=== PATIENT | female | born 1930 | race Caucasian/White ===

== ENCOUNTER 2018-02-02 07:55 | Inpatient (IN) | payer BC, MEDICARE ==
[2018-02-02 08:54] LABS: Hematocrit 34.6 % (37.0-47.0); Hemoglobin 11.2 gm/dL (12.5-16.0); Mean Cell Volume 96.6 fl (78-100); Mean Corpuscular Hemoglobin 31.3 pg (27-31); Mean Corpuscular Hgb Conc 32.4 g/dl (32-36); Mean Platelet Volume 11.1 fl (8-12.5); Neutrophil # 12.2 K/mm3 (1.3-6.0); Neutrophil % 80.6 % (42-75.0); Platelet Count 236 K/mm3 (150-450); Red Blood Count 3.58 M/mm3 (4.2-5.4); Red Cell Distribution Width 12.2 % (11.5-14.0); White Blood Count 15.1 K/mm3 (4.0-10.5)
[2018-02-02 09:06] LABS: Albumin * 3.1 gm/dl (3.4-5.0); Anion Gap 10.7 mmol/L (6.8-13.8); BUN/Creatinine Ratio 20.7 (9.0-21.6); Bilirubin, Total 0.7 mg/dL (0.0-1.1); Ca. Corrected For Albumin 9.2 mg/dL (8.4-10.2); Calcium * 8.8 mg/dL (7.9-10.9); Carbon Dioxide 30.7 mmol/L (24-32.6); Potassium 3.4 mmol/L (3.4-4.6); Total Protein 7.7 gm/dL (6.2-8.2)
[2018-02-02 10:21] LABS: Urine Bilirubin Negative (NEGATIVE); Urine Blood 50 /ul (NEGATIVE); Urine Ketone Negative (NEGATIVE); Urine Nitrite Negative (NEGATIVE); Urine Protein 15 mg/dL (NEGATIVE); Urine Urobilinogen Normal (NORMAL); Urine pH 7.5 pH (5.0-7.0)
[2018-02-02] MEDS ORDERED: HYDROmorphone HCL 1 MG/ML DISP.SYRIN IV ONE ×2 (10:25→11:45)
[2018-02-02] MEDS ORDERED: NORMAL SALINE 1,000 ML IV ONE (10:29)
[2018-02-02 10:31] LABS: Urine Appearance Cloudy (CLEAR); Urine Color Yellow
[2018-02-02 10:32] LABS: Urine Bacteria 2+; Urine RBC >50 /hpf (0-5); Urine WBC >50 /hpf (0-5)
--- NOTE | 2018-02-02 10:32 | ERNOTE ---
Lower Extremity HPI - Narrative Date of Service: 02/02/18 - General Lower Extremities Pain: leg: left, knee: left Time Seen by Provider: 02/02/18 08:06 Source: patient Exam Limitations: no limitations - Immun/Allergies/Home Medications Immunizations: IMMUNIZATION HX Immunizations Up to Date Yes History of Influenza Vaccine Yes Hx Pneumococcal Vaccination Yes Allergies/Adverse Reactions: Allergies Allergy/AdvReac Type Severity Reaction Status Date / Time No Known Allergies Allergy Verified 02/02/18 08:03 Home Medications: HOME MEDICATIONS Ferrous Sulfate 325 mg PO DAILY 10/28/13 [Last Taken 10/28/13] Gabapentin [Neurontin] 300 mg PO TID 10/28/13 [Last Taken 10/28/13] Mirtazapine [Remeron] 30 mg PO HS 10/28/13 [Last Taken 10/27/13] Multivitamin [Multi-Vitamin Daily] 1 each PO DAILY 10/28/13 [Last Taken 10/28/13] amLODIPine BESYLATE [Norvasc] 10 mg PO DAILY 10/28/13 [Last Taken 10/28/13] Acetaminophen [Tylenol] 650 mg PO Q4H PRN 10/29/13 [Last Taken Unknown] Collagenase Clostridium Hist. [Santyl] 1 applic TP DAILY 10/29/13 [Last Taken Unknown] Loratadine [Claritin] 10 mg PO DAILY PRN 10/29/13 [Last Taken Unknown] fentaNYL [Duragesic] 50 mcg TD Q72H 10/29/13 [Last Taken Unknown] Cholecalciferol (Vitamin D3) [Vitamin D-3] 2,000 unit PO DAILY #0 tablet 10/30/13 [Last Taken Unknown] Docusate Sodium [Colace] 200 mg PO HS #0 capsule 10/30/13 [Last Taken Unknown] HYDROmorphone HCL [Dilaudid] 2 mg PO Q6H PRN #0 tablet 10/30/13 [Last Taken Unknown] Lisinopril [Zestril] 10 mg PO HS #0 10/30/13 [Last Taken 10/28/13] Sertraline HCl [Zoloft] 100 mg PO DAILY #0 tablet 10/30/13 [Last Taken Unknown] ALPRAZolam [Xanax] 0.5 mg PO HS 02/01/18 [Last Taken Unknown] Acetaminophen [Tylenol] 650 mg PO DAILY 02/01/18 [Last Taken Unknown] Alprazolam [Xanax] 0.25 mg PO DAILY 02/01/18 [Last Taken Unknown] Loperamide HCl [Imodium] 2 mg PO TID PRN 02/01/18 [Last Taken Unknown] Loperamide HCl [Imodium] 4 mg PO DAILY PRN 02/01/18 [Last Taken Unknown] Metoprolol Succinate 25 mg PO DAILY 02/01/18 [Last Taken Unknown] Morphine Sulfate [Ms Contin] 15 mg PO BID 02/01/18 [Last Taken Unknown] Pramipexole Di-HCl [Pramipexole Dihydrochloride] 0.5 mg PO HS 02/01/18 [Last Taken Unknown] Simethicone [Gas Relief] 80 mg PO TID PRN 02/01/18 [Last Taken Unknown] guaiFENesin/DEXTROMETHORPHAN [Tussin Dm Syrup] 10 ml PO Q4H PRN 02/01/18 [Last Taken Unknown] rOPINIRole HCL [Requip] 2 mg PO HS 02/01/18 [Last Taken Unknown] - History of Present Illness Narrative: Patient presents to the ED via EMS for leg pain. She fell last night and had left knee/leg pain but this am it was noted to be swollen and she could not bear weight. Her left knee and leg were noted to be red and swollen. Once again this happened at around 930 pm last night. Had a fall. Denies other injuries. No head injury, no acute neck pain from the fall. no acute chest or abdominal pain. Pain severe with movement and better with rest. Occurred: other - last night Location of Incident: home Method of Injury: Reports: fell Reason for Fall: Reports: other - no syncope Loss of Consciousness: Reports: no loss of consciousness Modifying Factors - (Improves): Reports: rest Modifying Factors - (Worsens): Reports: movement Associated Symptoms: Reports: unable to bear weight Other Injuries: Reports: none Subsequent Symptoms: Denies: motor loss Prior Treament: Reports: recently seen Review of Systems - Review of Systems Constitutional: Absent: fever EYE: Present: no symptoms reported Respiratory: Absent: shortness of breath Cardiology: Absent: chest pain Gastrointestinal/Abdominal: Absent: abdominal pain Musculoskeletal: Present: See HPI Neurological: Present: other - weakness d/t pain. no clear acute weakness otherwise All Other Systems: All systems neg except as marked Medical History (Last Reviewed 02/02/18 @ 10:48 by Chuck Ovalles MD) Anxiety Hip fracture, left Hypertension Ovarian cancer Restless leg syndrome Social History: Preferred Language Maltese Smoking Status Never smoker Alcohol Use none Drug Use none No Social History Section defined Physical Exam - Physical Exam General Appearance: Present: alert, no apparent distress Head Exam: Present: normal inspection, no evidence of injury Eye Exam: Normal inspection: bilateral, PERRL: bilateral Ears, Nose, Throat: Present: normal ENT inspection Neck: Present: normal inspection, other - no vertebral posterior c-spine tenderness Respiratory: Present: no respiratory distress, normal breath sounds Cardiovascular/Chest: Present: regular rate, rhythm, normal peripheral pulses, other - DP pulse noted Gastrointestinal/Abdominal: Present: normal bowel sounds, nontender, soft Back Exam: Absent: vertebral tenderness Extremity Exam: Present: other - tenderness left knee and tib fib. Red and swollen. The compartments are not cliniclly hard and I do not feel this represents a clinical compartment synrome. DP pulse noted. Neurological Exam: Present: alert, no motor/sensory deficits, other - pain limits exam Skin Exam: Present: normal color, warm/dry, other - no open fracture ED Progress - Results and Orders Patient's Lab Results:: I have reviewed the patient's lab results. - Vital Signs Patient's Vital Signs:: I have reviewed the patient's vital signs. Vital Signs: Vital Signs 02/02/18 07:57 02/02/18 08:06 02/02/18 08:32 Temperature 36.6 C Pulse Rate 84 80 79 Respiratory Rate 15 13 17 Blood Pressure 152/69 H 162/71 H 162/71 H O2 Sat by Pulse Oximetry 95 94 96 02/02/18 09:00 02/02/18 09:23 02/02/18 09:40 Temperature Pulse Rate 77 76 87 Respiratory Rate 18 18 12 Blood Pressure 164/68 H 166/70 H 166/72 H O2 Sat by Pulse Oximetry 96 98 97 02/02/18 09:59 Temperature Pulse Rate 85 Respiratory Rate 16 Blood Pressure 154/65 H O2 Sat by Pulse Oximetry 98 - EKG EKG: NSR EKG read: Interp. by me EKG Comments: NSR rate 78. non-specific changes, no STEMI - X-Ray X-Ray #1 X-Ray: chest Interpretation: Interp. by me X-ray Comments: I reviewed official radiology report X-Ray #2 X-Ray: femur Interpretation: Interp. by me X-ray Comments: I reviewed official radiology report X-Ray #3 X-Ray: tibula/fibula Interpretation: Interp. by me X-ray Comments: I reviewed official radiology report X-Ray #4 X-Ray: knee Interpretation: Interp. by me X-ray Comments: i reviewed official radiology report - CT/Ultrasound CT/Ultrasound Narrative: I reviewed CT report - Progress/Reassessment Chief Complaint: Lower Extremity Pain/ Injury Progress Note-Subjective: 02/02/18 10:51 D/W Dr Woods who recommends CT. He called back and asked Medicine to admit for surgery today. D/W Dr Greco who will admit. Dr Woods will see the patient. I spoke with the patient and she understands the situation at hand. Agreeable to admission and ortho consult. Departure Clinical Impression: Fall, Fracture, tibia and fibula, proximal - Departure Disposition: Still a patient Condition: Stable
--- NOTE | 2018-02-02 11:59 | HP ---
Chief Complaint - Chief Complaint Date of Service: 02/02/18 Time of Service: 11:57 Chief Complaint: left lower leg fracture History of Present Illness: Patient is a resident of [facility], and sustained two falls yesterday. She was brought to the ED yesterday after the first fall, and again today. Yesterday's xrays were negative, but today's show she sustained nondisplaced fractures of her left upper tibia and fibula. Dr. Woods has been consulted, and she will be undergoing surgical fixation later today. Yesterday's ED note states her left lower leg has turned in since her hip surgery on that side, and she feels like that may have contributed to her fall. She reports a PMHx of chronic lower leg and back pain, previous ovarian cancer with radiation, bilateral hip fractures, partial colectomy due to bowel obstruction, chronic diarrhea, HTN, RLS,. Denies heart or lung problems, denies diabetes. She has been a resident of [place] since her hip fractures approximately 4-5 years ago. Review of her medication list shows an antidepressant and anxiolytic. Medical History (Last Reviewed 02/02/18 @ 10:48 by Chuck Ovalles MD) Anxiety Hip fracture, left Hypertension Ovarian cancer Restless leg syndrome Social History: Preferred Language Icelandic Smoking Status Never smoker Alcohol Use none Drug Use none No Social History Section defined Review Of Systems (GEN) - Review of Systems Generalized/Overall Review: Absent: Fever Respiratory: Absent: Cough, Shortness of Breath Cardiac: Absent: Edema Abdominal: Present: Diarrhea - chronic since surgery. Absent: Nausea Genitourinary: Absent: Dysuria Musculoskeletal: Present: Back Pain, Other - acute left lower leg pain. Walks with walker at baseline Neurological: Present: Anxiety Immunizations: IMMUNIZATION HX Immunizations Up to Date Yes History of Influenza Vaccine Yes Hx Pneumococcal Vaccination Yes Allergies/Adverse Reactions: Allergies Allergy/AdvReac Type Severity Reaction Status Date / Time No Known Allergies Allergy Verified 02/02/18 08:03 Home Medications: HOME MEDICATIONS Ferrous Sulfate 325 mg PO DAILY 10/28/13 [Last Taken 10/28/13] Gabapentin [Neurontin] 300 mg PO TID 10/28/13 [Last Taken 10/28/13] Mirtazapine [Remeron] 30 mg PO HS 10/28/13 [Last Taken 10/27/13] Multivitamin [Multi-Vitamin Daily] 1 each PO DAILY 10/28/13 [Last Taken 10/02 11/14] amLODIPine BESYLATE [Norvasc] 10 mg PO DAILY 10/28/13 [Last Taken 10/28/13] Acetaminophen [Tylenol] 650 mg PO Q4H PRN 10/29/13 [Last Taken Unknown] Collagenase Clostridium Hist. [Santyl] 1 applic TP DAILY 10/29/13 [Last Taken Unknown] Loratadine [Claritin] 10 mg PO DAILY PRN 10/29/13 [Last Taken Unknown] fentaNYL [Duragesic] 50 mcg TD Q72H 10/29/13 [Last Taken Unknown] Cholecalciferol (Vitamin D3) [Vitamin D-3] 2,000 unit PO DAILY #0 tablet 10/30/13 [Last Taken Unknown] Docusate Sodium [Colace] 200 mg PO HS #0 capsule 10/30/13 [Last Taken Unknown] HYDROmorphone HCL [Dilaudid] 2 mg PO Q6H PRN #0 tablet 10/30/13 [Last Taken Unknown] Lisinopril [Zestril] 10 mg PO HS #0 10/30/13 [Last Taken 10/28/13] Sertraline HCl [Zoloft] 100 mg PO DAILY #0 tablet 10/30/13 [Last Taken Unknown] ALPRAZolam [Xanax] 0.5 mg PO HS 02/01/18 [Last Taken Unknown] Acetaminophen [Tylenol] 650 mg PO DAILY 02/01/18 [Last Taken Unknown] Alprazolam [Xanax] 0.25 mg PO DAILY 02/01/18 [Last Taken Unknown] Loperamide HCl [Imodium] 2 mg PO TID PRN 02/01/18 [Last Taken Unknown] Loperamide HCl [Imodium] 4 mg PO DAILY PRN 02/01/18 [Last Taken Unknown] Metoprolol Succinate 25 mg PO DAILY 02/01/18 [Last Taken Unknown] Morphine Sulfate [Ms Contin] 15 mg PO BID 02/01/18 [Last Taken Unknown] Pramipexole Di-HCl [Pramipexole Dihydrochloride] 0.5 mg PO HS 02/01/18 [Last Taken Unknown] Simethicone [Gas Relief] 80 mg PO TID PRN 02/01/18 [Last Taken Unknown] guaiFENesin/DEXTROMETHORPHAN [Tussin Dm Syrup] 10 ml PO Q4H PRN 02/01/18 [Last Taken Unknown] rOPINIRole HCL [Requip] 2 mg PO HS 02/01/18 [Last Taken Unknown] Exam - Exam Vital Signs: Vital Signs - Last Taken Temp 36.6 C 02/02/18 07:57 Pulse 74 02/02/18 10:54 Resp 16 02/02/18 10:54 BP 152/55 H 02/02/18 10:54 Pulse Ox 98 02/02/18 10:54 Constitutional: Present: Alert, Oriented x3, Cooperative, No distress, Elderly Respiratory: Present: normal breath sounds, no respiratory distress, No wheezing Cardiovascular/Chest: Present: regular rate, rhythm Abdomen: Present: Normal bowel sounds, soft, nontender, nondistended Extremity: Present: other - ecchymosis of left anterior lower leg, 1+ swelling of left lower leg Neurologic: Present: depressed affect - states "just let me " Eye contact: Present: cooperative, good eye contact Diagnostic Studies: Abnormal Lab Results 02/02/18 02/02/18 02/02/18 Range/Units 08:51 08:51 09:59 WBC 15.1 H (4.0-10.5) K/mm3 RBC 3.58 L (4.2-5.4) M/mm3 Hgb 11.2 L (12.5-16.0) gm/dL Hct 34.6 L (37.0-47.0) % MCH 31.3 H (27-31) pg Immature Gran % (Auto) 0.50 H (0.001-0.429) % Immature Gran # (Auto) 0.08 H (0.000-0.0310) K/mm3 Neutrophils % 80.6 H (42-75.0) % Lymphocytes % 9.7 L (20-51) % Neutrophils # 12.2 H (1.3-6.0) K/mm3 Lymphocytes # 1.46 L (1.5-3.5) k/mm3 Monocytes # 1.3 H (0.0-1.0) k/mm3 Albumin 3.1 L (3.4-5.0) gm/dl Urine Protein 15 H (NEGATIVE) mg/dL Urine Blood 50 H (NEGATIVE) /ul Ur Leukocyte Esterase 500 H (NEGATIVE) /ul Urine RBC >50 H (0-5) /hpf Urine WBC >50 H (0-5) /hpf Urine Bacteria 2+ H (NONE) Laboratory Results WBC 15.1 K/mm3 (4.0-10.5) H 02/02/18 08:51 RBC 3.58 M/mm3 (4.2-5.4) L 02/02/18 08:51 Hgb 11.2 gm/dL (12.5-16.0) L 02/02/18 08:51 Hct 34.6 % (37.0-47.0) L 02/02/18 08:51 MCV 96.6 fl (78-100) 02/02/18 08:51 MCH 31.3 pg (27-31) H 02/02/18 08:51 MCHC 32.4 g/dl (32-36) 02/02/18 08:51 RDW 12.2 % (11.5-14.0) 02/02/18 08:51 Plt Count 236 K/mm3 (150-450) 02/02/18 08:51 MPV 11.1 fl (8-12.5) 02/02/18 08:51 Immature Gran % (Auto) 0.50 % (0.001-0.429) H 02/02/18 08:51 Immature Gran # (Auto) 0.08 K/mm3 (0.000-0.0310) H 02/02/18 08:51 Neutrophils % 80.6 % (42-75.0) H 02/02/18 08:51 Lymphocytes % 9.7 % (20-51) L 02/02/18 08:51 Monocytes % 8.8 % (0.0-9) 02/02/18 08:51 Eosinophils % 0.2 % (0.0-3.0) 02/02/18 08:51 Basophils % 0.2 % (0.0-1.0) 02/02/18 08:51 Nucleated RBC % 0.0 k/mm3 (0-1) 02/02/18 08:51 Neutrophils # 12.2 K/mm3 (1.3-6.0) H 02/02/18 08:51 Lymphocytes # 1.46 k/mm3 (1.5-3.5) L 02/02/18 08:51 Monocytes # 1.3 k/mm3 (0.0-1.0) H 02/02/18 08:51 Eosinophils # 0.0 k/mm3 (0.0-0.7) 02/02/18 08:51 Absolute Basophils 0.0 k/mm3 (0.0-0.1) 02/02/18 08:51 Sodium 141 mmol/L (132-142) 02/02/18 08:51 Plasma Sodium 141 mmol/L (130-142) 02/02/18 08:51 Potassium 3.4 mmol/L (3.4-4.6) 02/02/18 08:51 Chloride 103 mmol/L (97-106) 02/02/18 08:51 Carbon Dioxide 30.7 mmol/L (24-32.6) 02/02/18 08:51 Anion Gap 10.7 mmol/L (6.8-13.8) 02/02/18 08:51 BUN 17 mg/dL (3-23) 02/02/18 08:51 Creatinine 0.82 mg/dL (0.4-1.4) 02/02/18 08:51 Est GFR (Non-Af Amer) 70 mL/min (60-130) D 02/02/18 08:51 BUN/Creatinine Ratio 20.7 (9.0-21.6) 02/02/18 08:51 Random Glucose 99 mg/dL (70-110) 02/02/18 08:51 Calcium 8.8 mg/dL (7.9-10.9) 02/02/18 08:51 Calcium Adj for Albumin 9.2 mg/dL (8.4-10.2) 02/02/18 08:51 Total Bilirubin 0.7 mg/dL (0.0-1.1) 02/02/18 08:51 AST 17 U/L (0-48) 02/02/18 08:51 ALT 20 U/L (19-67) 02/02/18 08:51 Alkaline Phosphatase 117 U/L (50-170) 02/02/18 08:51 Total Protein 7.7 gm/dL (6.2-8.2) 02/02/18 08:51 Albumin 3.1 gm/dl (3.4-5.0) L 02/02/18 08:51 Urine Color Yellow 02/02/18 09:59 Urine Appearance Cloudy (CLEAR) 02/02/18 09:59 Urine pH 7.5 pH (5.0-7.0) 02/02/18 09:59 Ur Specific [place] 1.010 SP.GR. (1.005-1.010) 02/02/18 09:59 Urine Protein 15 mg/dL (NEGATIVE) H 02/02/18 09:59 Urine Glucose (UA) Negative mg/dL (NEGATIVE) 02/02/18 09:59 Urine Ketones Negative mg/dL (NEGATIVE) 02/02/18 09:59 Urine Blood 50 /ul (NEGATIVE) H 02/02/18 09:59 Urine Nitrate Negative (NEGATIVE) 02/02/18 09:59 Urine Bilirubin Negative mg/dl (NEGATIVE) 02/02/18 09:59 Prot Sulfosalicylic Acd QNS 02/02/18 09:59 Urine Urobilinogen Normal EU/dl (NORMAL) 02/02/18 09:59 Ur Leukocyte Esterase 500 /ul (NEGATIVE) H 02/02/18 09:59 Urine RBC >50 /hpf (0-5) H 02/02/18 09:59 Urine WBC >50 /hpf (0-5) H 02/02/18 09:59 Ur Epithelial Cells Trace /hpf (0-5) 02/02/18 09:59 Urine Bacteria 2+ (NONE) H 02/02/18 09:59 Urine Culture Comments Culture to follow 02/02/18 09:59 Assessment/Plan - Assessment/Plan (1) Fracture, tibia and fibula, proximal Assessment: Patient will be having surgical repair of her fracture this afternoon. Low surgical risk - not a high risk surgery, no hx of ischemic heart disease, no CHF, no previous TIA/stroke, no diabetes, creatinine of 0.82. She takes 15 mg morphine bid at baseline. Could potentially increase frequency for post op pain control. PT after surgery, but may need to go to a different facility for rehab after discharge. Problem: Acute Qualifiers: Encounter type: initial encounter Fracture type: closed Laterality: left Qualified Code(s): S82.102A - Unspecified fracture of upper end of left tibia, initial encounter for closed fracture; S82.832A - Other fracture of upper and lower end of left fibula, initial encounter for closed fracture (2) Hypertension Assessment: Med list includes amlodipine and metoprolol succinate. She is not sure what meds she takes, so unsure if the metoprolol is for BP. Her BP is slightly elevated in 150's/50's. No med adjustments needed currently, but will continue to monitor. Problem: Acute (3) Depression with anxiety Assessment: She appears acutely depressed today, which is to be expected after an injury. Will continue sertraline, mirtazipine, and 0.5 mg alprazolam qhs + 0.25 mg alprazolam in am. Will reassess after surgery, and may call for a power and recovery shift engineer if needed. Problem: Acute (4) Restless leg syndrome Assessment: Pramipexole and ropinirole are both listed on her med list. The combination of both meds can lead to hypotension and increased risk of [employer] depression. Will only use pramipexole going forward. Problem: Acute (5) Chronic diarrhea Assessment: She is prescribed loperamide. Will hold, as increased her pain meds puts her at risk for constipation. Problem: Acute
--- NOTE | 2018-02-02 13:25 | ANES ---
Anesthesia Pre Procedure Eval Vitals/Labs: Last Vital Signs Temp 37.6 C 02/02/18 10:34 Pulse 74 02/02/18 10:54 Resp 16 02/02/18 10:54 BP 152/55 H 02/02/18 10:54 Pulse Ox 98 02/02/18 10:54 HOME MEDICATIONS Ferrous Sulfate 325 mg PO DAILY 10/28/13 [Last Taken 10/28/13] Gabapentin [Neurontin] 300 mg PO TID 10/28/13 [Last Taken 10/28/13] Mirtazapine [Remeron] 30 mg PO HS 10/28/13 [Last Taken 10/27/13] Multivitamin [Multi-Vitamin Daily] 1 each PO DAILY 10/28/13 [Last Taken 10/28/13] amLODIPine BESYLATE [Norvasc] 10 mg PO DAILY 10/28/13 [Last Taken 10/28/13] Acetaminophen [Tylenol] 650 mg PO Q4H PRN 10/29/13 [Last Taken Unknown] Collagenase Clostridium Hist. [Santyl] 1 applic TP DAILY 10/29/13 [Last Taken Unknown] Loratadine [Claritin] 10 mg PO DAILY PRN 10/29/13 [Last Taken Unknown] fentaNYL [Duragesic] 50 mcg TD Q72H 10/29/13 [Last Taken Unknown] Cholecalciferol (Vitamin D3) [Vitamin D-3] 2,000 unit PO DAILY #0 tablet 10/30/13 [Last Taken Unknown] Docusate Sodium [Colace] 200 mg PO HS #0 capsule 10/30/13 [Last Taken Unknown] HYDROmorphone HCL [Dilaudid] 2 mg PO Q6H PRN #0 tablet 10/30/13 [Last Taken Unknown] Lisinopril [Zestril] 10 mg PO HS #0 10/30/13 [Last Taken 10/28/13] Sertraline HCl [Zoloft] 100 mg PO DAILY #0 tablet 10/30/13 [Last Taken Unknown] ALPRAZolam [Xanax] 0.5 mg PO HS 02/01/18 [Last Taken Unknown] Acetaminophen [Tylenol] 650 mg PO DAILY 02/01/18 [Last Taken Unknown] Alprazolam [Xanax] 0.25 mg PO DAILY 02/01/18 [Last Taken Unknown] Loperamide HCl [Imodium] 2 mg PO TID PRN 02/01/18 [Last Taken Unknown] Loperamide HCl [Imodium] 4 mg PO DAILY PRN 02/01/18 [Last Taken Unknown] Metoprolol Succinate 25 mg PO DAILY 02/01/18 [Last Taken Unknown] Morphine Sulfate [Ms Contin] 15 mg PO BID 02/01/18 [Last Taken Unknown] Pramipexole Di-HCl [Pramipexole Dihydrochloride] 0.5 mg PO HS 02/01/18 [Last Taken Unknown] Simethicone [Gas Relief] 80 mg PO TID PRN 02/01/18 [Last Taken Unknown] guaiFENesin/DEXTROMETHORPHAN [Tussin Dm Syrup] 10 ml PO Q4H PRN 02/01/18 [Last Taken Unknown] rOPINIRole HCL [Requip] 2 mg PO HS 02/01/18 [Last Taken Unknown] Allergies/Adverse Reactions: Allergies Allergy/AdvReac Type Severity Reaction Status Date / Time No Known Allergies Allergy Verified 02/02/18 08:03 - Planned Procedure Planned Procedure: leg fractures/fall Medication List Reviewed:: Yes Allergies Verified: Yes Medical History (Last Reviewed 02/02/18 @ 13:24 by Chuck Norman CRNA) Cholecystectomy planned (Acute) Hip fracture, left (Acute) Ovarian cancer (Acute) Anxiety Hypertension Restless leg syndrome Surgical History (Last Reviewed 02/02/18 @ 13:24 by Chuck Norman CRNA) History of colon resection (Acute) Family History (Last Reviewed 02/02/18 @ 13:24 by Chuck Norman CRNA) Son Osteoporosis Father Acute basophilic leukemia - Family Anesthesia History Family History:: no untoward family reactions to anesthesia - Airway/Neck/Teeth Within Normal Limits:: Yes Denture Type: None Neck Exam: full range of motion, normal inspection Mallampatti Score: 2 Thyromental (T-M) distance: > 6 cm Mandibulo Hyoid distance: > 3 cm - Respiratory Respiratory: lungs clear, normal breath sounds Smoking Status: Never smoker Sleep Apnea currently treated: No Sleep Apnea by current assessment: No - Cardiovascular Patient History - Cardiac/Respiratory: Hypertension Tolerates Activity: Fair Heart Sounds: S1 & S2, Regular - Anesthesia Assessment and Plan ASA Class: PS, III Anesthesia Type Plan: Spinal Planned difficult intubation/equipment available: No
--- NOTE | 2018-02-02 14:17 | CONS ---
- Reason for consultation (1) Fracture, tibia and fibula, proximal Date of Service: 02/02/18 HPI - General Narrative: Mrs. Sim is an 87-year-old female living in the assisted living area of nursing facility. She got up last night and fell resulting in injury to her left leg. She waited tonight and attempted to walk this morning when she was unable to and had increasing pain, swelling, and bruising. She was reported to the emergency department which time she was found to have a closed impacted displaced extra-articular proximal tibia fracture on the left leg. She denies any other areas of pain. She has history of bilateral proximal femur fractures. Source: patient, family Exam Limitations: no limitations - History of Present Illness Timing/Duration: 24 hours Severity: moderate Modifying Factors - (Worsens): Reports: movement Modifying Factors - (Improves): Reports: immobilization Allergies/Adverse Reactions: Allergies No Known Allergies Allergy (Verified 02/02/18 08:03) Home Medications: Home Medications Medication Instructions Recorded Last Taken Mirtazapine [Remeron] 30 mg PO HS 10/28/13 02/01/18 Multivitamin [Multi-Vitamin Daily] 1 each PO DAILY 10/28/13 02/01/18 amLODIPine BESYLATE [Norvasc] 10 mg PO DAILY 10/28/13 02/01/18 Acetaminophen [Tylenol] 650 mg PO Q4H PRN 10/29/13 Unknown Cholecalciferol (Vitamin D3) 2,000 unit PO DAILY #0 tablet 10/30/13 02/01/18 [Vitamin D-3] Sertraline HCl [Zoloft] 100 mg PO DAILY #0 tablet 10/30/13 02/01/18 ALPRAZolam [Xanax] 0.5 mg PO HS 02/01/18 02/01/18 Alprazolam [Xanax] 0.25 mg PO DAILY 02/01/18 02/01/18 Loperamide HCl [Imodium] 2 mg PO TID PRN 02/01/18 Unknown Metoprolol Succinate 25 mg PO DAILY 02/01/18 02/01/18 Morphine Sulfate [Ms Contin] 15 mg PO BID 02/01/18 02/01/18 Pramipexole Di-HCl [Pramipexole 0.5 mg PO HS 02/01/18 02/01/18 Dihydrochloride] Simethicone [Gas Relief] 80 mg PO TID PRN 02/01/18 Unknown guaiFENesin/DEXTROMETHORPHAN 10 ml PO Q4H PRN 02/01/18 Unknown [Tussin Dm Syrup] rOPINIRole HCL [Requip] 2 mg PO HS 02/01/18 02/01/18 Medications - Medications Current Medications: Current Medications Sodium Chloride (Sodium Chloride 0.9%) 1,000 mls @ 100 mls/hr IV .Q10H ONE Stop: 02/02/18 20:28 Last Admin: 02/02/18 12:13 Dose: 100 mls/hr Review of Systems - Review of Systems Generalized/Overall Review: Present: No Symptoms Reported Physical Examination - Exam Narrative: Left lower extremity: Calf is swollen but soft, noted ecchymosis about the proximal tibia, no lacerations or bleeding. Dorsalis pedis pulse. She is able to flex and extend her toes. She is no gross deformity. No signs of prior surgical incisions around the knee. She has no excess tenderness with palpation. Sensation is intact light touch throughout her leg. Vital Signs: Vital Signs - Last Taken Temp 37.6 C 02/02/18 10:34 Pulse 74 02/02/18 10:54 Resp 16 02/02/18 10:54 BP 152/55 H 02/02/18 10:54 Pulse Ox 98 02/02/18 10:54 O2 Oxygen Delivery Method Room Air - Results and Findings: Narrative: Left knee, left tibia, and left knee CT were reviewed: Noted decreased bone mineralization with extra-articular proximal tibia fracture just distal to the tibial tubercle, noted knee arthrosis, proximal fibula fracture Lab/Microbiology results last 24 hrs: Abnormal/Pending Laboratory Last 24 HRS 02/02/18 02/02/18 02/02/18 09:59 08:51 08:51 WBC 15.1 H RBC 3.58 L Hgb 11.2 L Hct 34.6 L MCH 31.3 H Immature Gran % (Auto) 0.50 H Immature Gran # (Auto) 0.08 H Neutrophils % 80.6 H Lymphocytes % 9.7 L Neutrophils # 12.2 H Lymphocytes # 1.46 L Monocytes # 1.3 H Albumin 3.1 L Urine Protein 15 H Urine Blood 50 H Ur Leukocyte Esterase 500 H Urine RBC >50 H Urine WBC >50 H Urine Bacteria 2+ H - Assessments/Findings (1) Fracture, tibia and fibula, proximal Diagnosis(s): The plan is for open reduction internal fixation left proximal tibia with possi ble allograft bone grafting. The risks, benefits, and alternatives to treatment were discussed with her as well as her family. She would like to proceed. We reviewed that with her decreased mineralization as well as her arthrosis and the nature of this fracture that she would likely be nonweightbearing for a prolonged amount of time and would likely also result in stiffness to her knee. We will proceed today with surgical intervention. Problem: Acute Qualifiers: Encounter type: initial encounter Fracture type: closed Laterality: left Qualified Code(s): S82.102A - Unspecified fracture of upper end of left tibia, initial encounter for closed fracture; S82.832A - Other fracture of upper and lower end of left fibula, initial encounter for closed fracture
[2018-02-02] MEDS: RINGER'S SOLUTION,LACTATED 1,000 ML IV PRN ×2 (16:37→20:28)
[2018-02-02] MEDS ORDERED: MAG HYDROX/ALUMINUM HYD/SIMETH 30 ML UDC PO PRN (17:29)
[2018-02-02] MEDS ORDERED: ONDANSETRON HCL/PF 2 MG/ML VIAL IV PRN (17:29)
[2018-02-02] MEDS ORDERED: MORPHINE SULFATE 4 MG/ML SYRG IV PRN (17:29)
[2018-02-02] MEDS ORDERED: ACETAMINOPHEN 500 MG TABLET PO PRN (17:29)
[2018-02-02] MEDS ORDERED: MAGNESIUM HYDROXIDE 30 ML UDC PO PRN (17:29)
--- NOTE | 2018-02-02 17:29 | POSTOP NO ---
Date of Surgery: 02/02/18 Patient Tolerated the Procedure: Well Post Operative Diagnosis/Procedures: Factory Process Workers: Jonathan Santos PA-C Post-operative Diagnosis: Comminuted extra-articular left closed proximal tibia fracture Finding: Above Procedure: Open reduction internal fixation of comminuted extra-articular left closed proximal tibia fracture, intraoperative interpretation of x-rays Estimated Blood Loss: Minimal Specimens: None
--- NOTE | 2018-02-02 18:14 | ANES ---
Post Anesthesia Discharge - Transfer of Care Transfer of Care handoff given to nurse: Yes - Discharge from PACU Discharge from PACU when meets criteria: Yes - Alert and comfortable - Anesthesia Post Op Note Anesthesia Post Op Note: Admitted to PACU [id number]
--- NOTE | 2018-02-02 18:15 | ANES ---
Post Anesthesia Assessment - Vital Signs Vitals: Last Vital Signs Temp 37.0 C 02/02/18 17:40 Pulse 81 02/02/18 18:00 Resp 16 02/02/18 18:00 BP 150/74 H 02/02/18 18:00 Pulse Ox 95 02/02/18 18:00 Airway Patency: Normal - Mental Status Level Of Consciousness: Awake, Alert, Appropriate - Pain Level Pain Score: 0 - N/V Assessment Nausea/Vomiting Presence: None Dehydration:: No
[2018-02-02] MEDS: HYDROcodone/ACETAMINOPHEN 1 EACH TABLET PO PRN ×2 (18:33→21:55)
[2018-02-02] MEDS ORDERED: ACETAMINOPHEN 325 MG TABLET PO PRN (19:21)
[2018-02-02] MEDS: ALPRAZolam 0.5 MG TABLET PO SCH (20:11)
[2018-02-02] MEDS: SENNOSIDES/DOCUSATE SODIUM 1 TAB TABLET PO SCH (20:11)
[2018-02-02] MEDS: ceFAZolin SODIUM 1 GM in DEXTROSE 5 % IN WATER 100 ML IV SCH ×2 (20:12)
[2018-02-02] MEDS: PRAMIPEXOLE DI-HCL 0.5 MG TABLET PO SCH (20:51)
[2018-02-03] MEDS: HYDROcodone/ACETAMINOPHEN 1 EACH TABLET PO PRN ×6 (01:08→19:30)
[2018-02-03] MEDS: ceFAZolin SODIUM 1 GM in DEXTROSE 5 % IN WATER 100 ML IV SCH ×4 (01:09→06:41)
[2018-02-03] MEDS: RINGER'S SOLUTION,LACTATED 1,000 ML IV PRN (05:22)
[2018-02-03] MEDS ORDERED: ceFAZolin SODIUM 1 GM VIAL IV PRN (06:00)
[2018-02-03 06:22] LABS: Mean Cell Volume 95.6 fl (78-100); Mean Corpuscular Hemoglobin 31.2 pg (27-31); Mean Corpuscular Hgb Conc 32.6 g/dl (32-36); Mean Platelet Volume 11.3 fl (8-12.5); Platelet Count 163 K/mm3 (150-450); Red Cell Distribution Width 12.1 % (11.5-14.0); White Blood Count 11.3 K/mm3 (4.0-10.5)
[2018-02-03 06:31] LABS: Anion Gap 10.1 mmol/L (6.8-13.8); BUN/Creatinine Ratio 16.2 (9.0-21.6); Calcium * 7.7 mg/dL (7.9-10.9); Carbon Dioxide 26.9 mmol/L (24-32.6); Estimated Creat Clear 50.4; Hematocrit 23.9 % (37.0-47.0); Hemoglobin 7.8 gm/dL (12.5-16.0)
[2018-02-03 07:01] LABS: Hematocrit 23.6 % (37.0-47.0); Hemoglobin 7.7 gm/dL (12.5-16.0)
--- NOTE | 2018-02-03 07:32 | PN ---
Subjective - Date and Time Seen Date: 02/03/18 Time: 07:32 Subjective Narrative: Patient is POD #1 surgical fixation of left tibia and fibular fracture. Responds "I don't know" when asked about her leg pain. She has back pain from the bed. She had some brief chest pain overnight. Negative troponins and no signs of ischemia or infarct on EKGs. Hgb low this morning, 7.8, and she is receiving one unit PRBCs. Urine culture growing gram negative bacilli. She is very tearful, stating she wish God would just take her. Objective - Review of Systems Generalized/Overall Review: Denies: Fever Respiratory: Denies: Cough, Shortness of Breath Cardiac: Reports: Chest Pain - overnight, resolved currently Abdominal: Denies: Vomiting, Diarrhea Genitourinary Symptoms: Reports: Other - catheter still in place Musculoskeletal Complaints: Reports: Back Pain Neurological: Reports: Depressed, Emotional Problems - Vitals Vitals: Last Vital Signs Temp 37.4 C 02/03/18 00:05 Pulse 80 02/03/18 06:05 Resp 18 02/03/18 06:05 BP 129/52 02/03/18 06:05 Pulse Ox 93 02/03/18 06:05 - Abnormal Lab Findings Abnormal Lab Findings: Abnormal Lab Results 02/02/18 02/02/18 02/02/18 Range/Units 08:51 08:51 09:59 WBC 15.1 H (4.0-10.5) K/mm3 RBC 3.58 L (4.2-5.4) M/mm3 Hgb 11.2 L (12.5-16.0) gm/dL Hct 34.6 L (37.0-47.0) % MCH 31.3 H (27-31) pg Immature Gran % (Auto) 0.50 H (0.001-0.429) % Immature Gran # (Auto) 0.08 H (0.000-0.0310) K/mm3 Neutrophils % 80.6 H (42-75.0) % Lymphocytes % 9.7 L (20-51) % Neutrophils # 12.2 H (1.3-6.0) K/mm3 Lymphocytes # 1.46 L (1.5-3.5) k/mm3 Monocytes # 1.3 H (0.0-1.0) k/mm3 Potassium (3.4-4.6) mmol/L Calcium (7.9-10.9) mg/dL Albumin 3.1 L (3.4-5.0) gm/dl Urine Protein 15 H (NEGATIVE) mg/dL Urine Blood 50 H (NEGATIVE) /ul Ur Leukocyte Esterase 500 H (NEGATIVE) /ul Urine RBC >50 H (0-5) /hpf Urine WBC >50 H (0-5) /hpf Urine Bacteria 2+ H (NONE) 02/03/18 02/03/18 02/03/18 Range/Units 06:20 06:20 06:50 WBC 11.3 H D (4.0-10.5) K/mm3 RBC 2.50 L (4.2-5.4) M/mm3 Hgb 7.8 L* D 7.7 L* (12.5-16.0) gm/dL Hct 23.9 L* D 23.6 L* (37.0-47.0) % MCH 31.2 H (27-31) pg Immature Gran % (Auto) (0.001-0.429) % Immature Gran # (Auto) (0.000-0.0310) K/mm3 Neutrophils % (42-75.0) % Lymphocytes % (20-51) % Neutrophils # (1.3-6.0) K/mm3 Lymphocytes # (1.5-3.5) k/mm3 Monocytes # (0.0-1.0) k/mm3 Potassium 3.0 L (3.4-4.6) mmol/L Calcium 7.7 L (7.9-10.9) mg/dL Albumin (3.4-5.0) gm/dl Urine Protein (NEGATIVE) mg/dL Urine Blood (NEGATIVE) /ul Ur Leukocyte Esterase (NEGATIVE) /ul Urine RBC (0-5) /hpf Urine WBC (0-5) /hpf Urine Bacteria (NONE) - Exam Constitutional: Present: Alert, Oriented x3, No distress Respiratory: Present: lungs clear, normal breath sounds Cardiovascular/Chest: Present: regular rate, rhythm Abdomen: Present: Normal bowel sounds, soft, nontender Extremity: Present: other - brace over left lower leg. Absent: pedal edema Neurologic: Present: depressed affect Cauti Physician Documentation - Urinary Catheter Management Urethral (Myers) Urethral Indwelling: Yes Reason for Continuing Indwelling Catheter: Invasive Procedure - fracture repair Date of Insertion: 02/02/18 Time of Insertion: 15:05 Assessment/Plan - Problems/Diagnosis (1) Fracture, tibia and fibula, proximal Problem: Acute Qualifiers: Encounter type: initial encounter Fracture type: closed Laterality: left Qualified Code(s): S82.102A - Unspecified fracture of upper end of left tibia, initial encounter for closed fracture; S82.832A - Other fracture of upper and lower end of left fibula, initial encounter for closed fracture Narrative: POD day #1 surgical repair. Pain control per ortho. Her Hgb decreased to 7.7 since yesterday, so will hold lovenox until tomorrow. PT to evaluate. (2) Anemia Problem: Acute Narrative: Hgb 7.8 this morning, 7.7 on recheck. Down from 11.2 yesterday. With her overnight chest pain, will administer one U PRBC and recheck. She is POD #1, so this is not unexpected after surgery. Denies SOB, and no murmur on exam. (3) UTI (urinary tract infection) Problem: Acute Narrative: Urine culture growing greater than 100,000 CFU gram negative bacilli, and Rocephin has been started. This could have been the reason for her falls. Urine culture obtained prior to catheterization. She was catheterized for surgery yesterday, and this will be removed this morning. She has been afebrile, and WBC decreased from 15.1 yesterday to 11.3 today. (4) Chest pain Problem: Resolved Narrative: She had some brief CP overnight. Neg troponin, no change on EKG. Given the combination of CP and anemia, she is being transfused one U PRBC. Will continue to monitor. (5) Hypertension Problem: Acute Narrative: Well controlled. Continue home amlodipine and metoprolol. (6) Depression with anxiety Problem: Acute Narrative: She is making repeated comments about wanting to . Will see if a die polisher can talk with her today. Continue home sertraline, mirtazipine, and xanax. (7) Restless leg syndrome Problem: Acute Narrative: Continue home mirapex. (8) Chronic diarrhea Problem: Acute Narrative: She is having soft stools. Holding home imodium, as the increased pain medication may cause some constipation.
[2018-02-03] MEDS: SERTRALINE HCL 100 MG TABLET PO SCH (08:49)
[2018-02-03] MEDS: amLODIPine BESYLATE 10 MG TABLET PO SCH (08:49)
[2018-02-03] MEDS: METOPROLOL SUCCINATE 25 MG TABLET.SA PO SCH (08:49)
[2018-02-03] MEDS ORDERED: ALPRAZolam 0.25 MG TABLET PO SCH (09:00)
--- NOTE | 2018-02-03 11:07 | PN ---
Subjective - Date and Time Seen Date: 02/03/18 Time: 11:01 Subjective Narrative: Reports pain. Medications to help. Has not gotten up the the chair. Family reports she ate breakfast well. No nausea. Does feel run down. Objective Objective Narrative: Patient comfortable in bed. Responds to questions appropriately. Immobolizer on. Bandages intact. Calf supple. Pasha to PF/DF left ankle. Foot warm to touch. - Vitals Vitals: Last Vital Signs Temp 37 C 02/03/18 10:42 Pulse 66 02/03/18 10:42 Resp 18 02/03/18 10:42 BP 113/46 02/03/18 10:42 Pulse Ox 93 02/03/18 10:42 - Abnormal Lab Findings Abnormal Lab Findings: Abnormal Lab Results 02/03/18 02/03/18 02/03/18 Range/Units 06:20 06:20 06:30 WBC 11.3 H D (4.0-10.5) K/mm3 RBC 2.50 L (4.2-5.4) M/mm3 Hgb 7.8 L* D (12.5-16.0) gm/dL Hct 23.9 L* D (37.0-47.0) % MCH 31.2 H (27-31) pg Potassium 3.0 L (3.4-4.6) mmol/L Calcium 7.7 L (7.9-10.9) mg/dL Crossmatch See Detail 02/03/18 Range/Units 06:50 WBC (4.0-10.5) K/mm3 RBC (4.2-5.4) M/mm3 Hgb 7.7 L* (12.5-16.0) gm/dL Hct 23.6 L* (37.0-47.0) % MCH (27-31) pg Potassium (3.4-4.6) mmol/L Calcium (7.9-10.9) mg/dL Crossmatch - Exam Constitutional: Present: Alert, Oriented x3, Cooperative, No distress Cauti Physician Documentation - Urinary Catheter Management Urethral (Myers) Urethral Indwelling: Yes Date of Insertion: 02/02/18 Time of Insertion: 15:05 Assessment/Plan - Problems/Diagnosis (1) History of open reduction and internal fixation (ORIF) procedure Problem: Acute Narrative: Post op day 1. Discussed with nursing log role in bed to prevent ulcer. Immobolizer at all times. Pain control. Medical management Dr. Greco. Currently getting one unit of blood. (2) Fracture, tibia and fibula, proximal Problem: Acute Qualifiers: Encounter type: initial encounter Fracture type: closed Laterality: left Qualified Code(s): S82.102A - Unspecified fracture of upper end of left tibia, initial encounter for closed fracture; S82.832A - Other fracture of upper and lower end of left fibula, initial encounter for closed fracture
[2018-02-03] MEDS ORDERED: ALPRAZolam 0.25 MG TABLET PO PRN (13:12)
[2018-02-03 14:50] LABS: Hematocrit 29.6 % (37.0-47.0); Hemoglobin 9.5 gm/dL (12.5-16.0)
[2018-02-03] MEDS ORDERED: ENOXAPARIN SODIUM 40 MG/0.4 ML SYRG SC SCH (16:29)
[2018-02-03] MEDS: PRAMIPEXOLE DI-HCL 0.5 MG TABLET PO SCH (20:50)
[2018-02-03] MEDS: MIRTAZAPINE 15 MG TABLET PO SCH (20:50)
[2018-02-03] MEDS: SENNOSIDES/DOCUSATE SODIUM 1 TAB TABLET PO SCH (20:50)
[2018-02-03] MEDS: ALPRAZolam 0.5 MG TABLET PO SCH (20:53)
[2018-02-04] MEDS: HYDROcodone/ACETAMINOPHEN 1 EACH TABLET PO PRN ×6 (01:21→21:21)
[2018-02-04] MEDS: ENOXAPARIN SODIUM 40 MG/0.4 ML SYRG SC SCH (07:22)
[2018-02-04 07:46] LABS: Hematocrit 30.3 % (37.0-47.0); Mean Cell Volume 95.6 fl (78-100); Mean Corpuscular Hemoglobin 31.5 pg (27-31); Mean Platelet Volume 11.5 fl (8-12.5); Neutrophil # 9.7 K/mm3 (1.3-6.0); Neutrophil % 76.4 % (42-75.0); Platelet Count 172 K/mm3 (150-450); Red Blood Count 3.17 M/mm3 (4.2-5.4); Red Cell Distribution Width 12.1 % (11.5-14.0); White Blood Count 12.7 K/mm3 (4.0-10.5)
[2018-02-04] MEDS: METOPROLOL SUCCINATE 25 MG TABLET.SA PO SCH (08:02)
[2018-02-04] MEDS: amLODIPine BESYLATE 10 MG TABLET PO SCH (08:02)
[2018-02-04] MEDS: SERTRALINE HCL 100 MG TABLET PO SCH (08:03)
--- NOTE | 2018-02-04 10:38 | PN ---
Subjective - Date and Time Seen Date: 02/04/18 Time: 10:24 Subjective Narrative: Patient reports feeling "so-so." She is looking forward to being more mobile today and sitting up in the chair. Still has back, neck, head pain. Objective - Review of Systems Generalized/Overall Review: Denies: Fever Respiratory: Denies: Cough, Shortness of Breath Cardiac: Denies: Chest Pain, Edema Abdominal: Denies: Vomiting Genitourinary Symptoms: Denies: Dysuria Musculoskeletal Complaints: Reports: Back Pain, Neck Pain, Other - left lower leg pain Neurological: Reports: Depressed, Emotional Problems - Vitals Vitals: Last Vital Signs Temp 37.2 C 02/04/18 09:00 Pulse 65 02/04/18 09:00 Resp 18 02/04/18 09:00 BP 151/57 H 02/04/18 09:00 Pulse Ox 93 02/04/18 09:00 - Abnormal Lab Findings Abnormal Lab Findings: Abnormal Lab Results 02/03/18 02/03/18 02/04/18 Range/Units 06:30 14:25 07:33 WBC 12.7 H (4.0-10.5) K/mm3 RBC 3.17 L (4.2-5.4) M/mm3 Hgb 9.5 L 10.0 L (12.5-16.0) gm/dL Hct 29.6 L 30.3 L (37.0-47.0) % MCH 31.5 H (27-31) pg Immature Gran % (Auto) 0.50 H (0.001-0.429) % Immature Gran # (Auto) 0.06 H (0.000-0.0310) K/mm3 Neutrophils % 76.4 H (42-75.0) % Lymphocytes % 11.8 L (20-51) % Monocytes % 10.6 H (0.0-9) % Neutrophils # 9.7 H (1.3-6.0) K/mm3 Monocytes # 1.4 H (0.0-1.0) k/mm3 Crossmatch See Detail - Exam Constitutional: Present: Alert, Oriented x3, Cooperative, No distress, Elderly, Thin and frail Respiratory: Present: normal breath sounds, no respiratory distress Cardiovascular/Chest: Present: regular rate, rhythm Abdomen: Present: Normal bowel sounds, soft, nontender Extremity: Present: other - left lower leg in large brace.. Absent: pedal edema Neurologic: Present: other - mood seems to have improved from yesterday. Eye contact: Present: cooperative, good eye contact Cauti Physician Documentation - Urinary Catheter Management Urethral (Myers) Urethral Indwelling: Yes Date of Insertion: 02/02/18 Time of Insertion: 15:05 Date of Removal: 02/03/18 Time of Removal: 11:30 Assessment/Plan - Problems/Diagnosis (1) Fracture, tibia and fibula, proximal Problem: Acute Qualifiers: Encounter type: initial encounter Fracture type: closed Laterality: left Qualified Code(s): S82.102A - Unspecified fracture of upper end of left tibia, initial encounter for closed fracture; S82.832A - Other fracture of upper and lower end of left fibula, initial encounter for closed fracture Narrative: POD #2 surgical repain. Pain control per ortho. Will do PT today. Placement pending. Encouraged her to reposition herself frequently in bed, as she is at risk for ulcers. (2) Anemia Problem: Chronic Narrative: Baseline appears to be around 9.0. She received one U PRBC yesterday, and her hgb is 10.0 today. Denies shortness of breath. (3) UTI (urinary tract infection) Problem: Acute Narrative: Urine culture grew greater than 100,000 CFU klebsiella, and she is day #2 of Rocephin. Denies current symptoms. This UTI could have been the reason behind her having two falls in one day. (4) Chest pain Problem: Resolved Narrative: Has not recurred. No further intervention required. (5) Hypertension Problem: Acute Narrative: BP has been fluctuating. continue current meds. (6) Depression with anxiety Problem: Acute Narrative: Continue current meds. 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 Encouraged family support. (7) Restless leg syndrome Problem: Acute (8) Chronic diarrhea Problem: Chronic Narrative: Not currently present. Holding home imodium, as her pain meds may cause some constipation.
--- NOTE | 2018-02-04 10:42 | PN ---
Subjective - Date and Time Seen Date: 02/04/18 Time: 10:38 Subjective Narrative: Reports doing "okay". Is ready for a pain pill. No nausea. No other complaints. Objective Objective Narrative: In bed with leg propped up on pillows. Immobolizer on. Bandages intact. Dried blood on dressings. Able to PF/DF ankle. Calf supple. - Vitals Vitals: Last Vital Signs Temp 37.2 C 02/04/18 09:00 Pulse 65 02/04/18 09:00 Resp 18 02/04/18 09:00 BP 151/57 H 02/04/18 09:00 Pulse Ox 93 02/04/18 09:00 - Abnormal Lab Findings Abnormal Lab Findings: Abnormal Lab Results 02/03/18 02/03/18 02/04/18 Range/Units 06:30 14:25 07:33 WBC 12.7 H (4.0-10.5) K/mm3 RBC 3.17 L (4.2-5.4) M/mm3 Hgb 9.5 L 10.0 L (12.5-16.0) gm/dL Hct 29.6 L 30.3 L (37.0-47.0) % MCH 31.5 H (27-31) pg Immature Gran % (Auto) 0.50 H (0.001-0.429) % Immature Gran # (Auto) 0.06 H (0.000-0.0310) K/mm3 Neutrophils % 76.4 H (42-75.0) % Lymphocytes % 11.8 L (20-51) % Monocytes % 10.6 H (0.0-9) % Neutrophils # 9.7 H (1.3-6.0) K/mm3 Monocytes # 1.4 H (0.0-1.0) k/mm3 Crossmatch See Detail - Exam Constitutional: Present: Alert, Oriented x3, Cooperative, No distress Cauti Physician Documentation - Urinary Catheter Management Urethral (Myers) Urethral Indwelling: Yes Date of Insertion: 02/02/18 Time of Insertion: 15:05 Date of Removal: 02/03/18 Time of Removal: 11:30 Assessment/Plan - Problems/Diagnosis (1) History of open reduction and internal fixation (ORIF) procedure Problem: Acute Narrative: Patient to get up to chair with therapy today. Nonweight bearing left leg. Immobolizer at all times. Pain control. Anticoagulation. (2) Fracture, tibia and fibula, proximal Problem: Acute Qualifiers: Encounter type: initial encounter Fracture type: closed Laterality: left Qualified Code(s): S82.102A - Unspecified fracture of upper end of left tibia, initial encounter for closed fracture; S82.832A - Other fracture of upper and lower end of left fibula, initial encounter for closed fracture
[2018-02-04] MEDS: ALPRAZolam 0.5 MG TABLET PO SCH (21:21)
[2018-02-04] MEDS: MIRTAZAPINE 15 MG TABLET PO SCH (21:22)
[2018-02-04] MEDS: SENNOSIDES/DOCUSATE SODIUM 1 TAB TABLET PO SCH (21:22)
[2018-02-04] MEDS: PRAMIPEXOLE DI-HCL 0.5 MG TABLET PO SCH (21:23)
[2018-02-05] MEDS: HYDROcodone/ACETAMINOPHEN 1 EACH TABLET PO PRN ×3 (02:34→11:01)
[2018-02-05] MEDS: ENOXAPARIN SODIUM 40 MG/0.4 ML SYRG SC SCH (07:26)
[2018-02-05] MEDS: amLODIPine BESYLATE 10 MG TABLET PO SCH (08:59)
[2018-02-05] MEDS: SERTRALINE HCL 100 MG TABLET PO SCH (08:59)
[2018-02-05] MEDS: METOPROLOL SUCCINATE 25 MG TABLET.SA PO SCH (08:59)
--- NOTE | 2018-02-05 10:10 | PN ---
Subjective - Date and Time Seen Date: 02/05/18 Time: 10:08 Subjective Narrative: She reports back pain. She was able to get up to the bedside with therapy. She reports minimal leg pain Objective - Vitals Vitals: Last Vital Signs Temp 36.8 C 02/05/18 06:00 Pulse 67 02/05/18 08:59 Resp 20 02/05/18 06:00 BP 133/58 02/05/18 08:59 Pulse Ox 90 L 02/05/18 06:00 - Exam Exam Narrative: Left lower extremity: Palpable dorsalis pedis pulse, sensation intact light touch, flex and extend her toes, calf was soft, dressings dry, immobilizing place Cauti Physician Documentation - Urinary Catheter Management Urethral (Myers) Urethral Indwelling: Yes Date of Insertion: 02/02/18 Time of Insertion: 15:05 Date of Removal: 02/03/18 Time of Removal: 11:30 Assessment/Plan - Problems/Diagnosis (1) Fracture, tibia and fibula, proximal Problem: Acute Qualifiers: Encounter type: subsequent encounter Fracture type: closed Laterality: left Fracture healing: with routine healing Qualified Code(s): S82.102D - Unspecified fracture of upper end of left tibia, subsequent encounter for closed fracture with routine healing; S82.832D - Other fracture of upper and lower end of left fibula, subsequent encounter for closed fracture with routine healing Narrative: She is okay to transfer to [facility] unit from an orthopedic standpoint. Continue nonweightbearing. Utilize her immobilizer at all times. She will follow-up in 2 weeks with orthopedics. Keep her dressings intact and dry. Continue physical therapy/occupational therapy. Avoid nonsteroidal anti- inflammatories.
[2018-02-05] MEDS ORDERED: LIDOCAINE 1 PATCH ADH..PATCH TP SCH (10:15)
--- NOTE | 2018-02-05 10:33 | DS ---
(1) Fracture, tibia and fibula, proximal Problem: Acute Qualifiers: Encounter type: subsequent encounter Fracture type: closed Laterality: left Fracture healing: with routine healing Qualified Code(s): S82.102D - Unspecified fracture of upper end of left tibia, subsequent encounter for closed fracture with routine healing; S82.832D - Other fracture of upper and lower end of left fibula, subsequent encounter for closed fracture with routine healing (2) Anemia Problem: Chronic (3) UTI (urinary tract infection) Problem: Acute (4) Chest pain Problem: Resolved (5) Hypertension Problem: Acute (6) Depression with anxiety Problem: Acute (7) Restless leg syndrome Problem: Acute (8) Chronic diarrhea Problem: Chronic Description of Stay: Patient presented to the ED for the second time in 24 hours for a fall. She went to the ED the day prior to admission, no significant injuries were found, and she returned to [place]. That night, she fell again, but sustained fractures of her upper tibia and fibula. Underwent surgical repair on 02/02. The day after surgery, she was anemic with a Hgb of 7.7 and received one unit of PRBC. Her Hgb recovered, and the following day her Hgb was 10.0. She worked with PT, and was able to maintain po hydration. Procedures Performed: see notes below - Open reduction internal fixation of comminuted extra-articular left closed proximal tibia fracture Results and Findings: Lab Pending Results 02/02/18 08:51: WBC 15.1 H, RBC 3.58 L, Hgb 11.2 L, Hct 34.6 L, MCV 96.6, MCH 31.3 H, MCHC 32.4, RDW 12.2, Plt Count 236, MPV 11.1, Immature Gran % (Auto) 0.50 H, Immature Gran # (Auto) 0.08 H, Neutrophils % 80.6 H, Lymphocytes % 9.7 L, Monocytes % 8.8, Eosinophils % 0.2, Basophils % 0.2, Nucleated RBC % 0.0, Neutrophils # 12.2 H, Lymphocytes # 1.46 L, Monocytes # 1.3 H, Eosinophils # 0.0, Absolute Basophils 0.0 02/02/18 08:51: Sodium 141, Plasma Sodium 141, Potassium 3.4, Chloride 103, Carbon Dioxide 30.7, Anion Gap 10.7, BUN 17, Creatinine 0.82, Est GFR (Non-Af Amer) 70 D, BUN/Creatinine Ratio 20.7, Random Glucose 99, Calcium 8.8, Calcium Adj for Albumin 9.2, Total Bilirubin 0.7, AST 17, ALT 20, Alkaline Phosphatase 117, Total Protein 7.7, Albumin 3.1 L 02/02/18 09:59: Urine Color Yellow, Urine Appearance Cloudy, Urine pH 7.5, Ur Specific [place] 1.010, Urine Protein 15 H, Urine Glucose (UA) Negative, Urine Ketones Negative, Urine Blood 50 H, Urine Nitrate Negative, Urine Bilirubin Negative, Prot Sulfosalicylic Acd QNS, Urine Urobilinogen Normal, Ur Leukocyte Esterase 500 H, Urine RBC >50 H, Urine WBC >50 H, Ur Epithelial Cells Trace, Urine Bacteria 2+ H, Urine Culture Comments Culture to follow 02/03/18 00:20: Troponin I Less than 0.017 02/03/18 06:20: WBC 11.3 H D, RBC 2.50 L, Hgb 7.8 L* D, Hct 23.9 L* D, MCV 95.6, MCH 31.2 H, MCHC 32.6, RDW 12.1, Plt Count 163, MPV 11.3 02/03/18 06:20: Sodium 140, Plasma Sodium 140, Potassium 3.0 L, Chloride 106, Carbon Dioxide 26.9, Anion Gap 10.1, BUN 11, Creatinine 0.68, Est GFR (Non-Af Amer) 87 D, BUN/Creatinine Ratio 16.2, Random Glucose 102, Calcium 7.7 L 02/03/18 06:30: Blood Type B Positive, Antibody Screen Negative, Crossmatch See Detail 02/03/18 06:50: Hgb 7.7 L*, Hct 23.6 L* 02/03/18 07:53: Troponin I Less than 0.017 02/03/18 14:25: Hgb 9.5 L, Hct 29.6 L 02/04/18 07:33: WBC 12.7 H, RBC 3.17 L, Hgb 10.0 L, Hct 30.3 L, MCV 95.6, MCH 31.5 H, MCHC 33.0, RDW 12.1, Plt Count 172, MPV 11.5, Immature Gran % (Auto) 0.50 H, Immature Gran # (Auto) 0.06 H, Neutrophils % 76.4 H, Lymphocytes % 11.8 L, Monocytes % 10.6 H, Eosinophils % 0.5, Basophils % 0.2, Nucleated RBC % 0.0, Neutrophils # 9.7 H, Lymphocytes # 1.50, Monocytes # 1.4 H, Eosinophils # 0.1, Absolute Basophils 0.0 Discharge Location: [facility] Disposition: [facility] Condition: Fair Level of Care: SNF Discharge Activity: Non-Weight bearing - on left leg Discharge Diet: General/regular food Prescriptions (Any new or edited meds): Cefdinir 300 mg PO DAILY #5 cap HYDROcodone/ACETAMINOPHEN [[place] 5-325] 1 ea PO Q3H PRN #112 tab PRN Reason: Moderate Pain (Pain Scale 4-6) Lidocaine [Lidoderm 5%] 1 patch TOPICAL DAILY #50 patch Complete Home Medications List: Complete Home Medication List: Mirtazapine [Remeron] 30 mg PO HS 10/28/13 Multivitamin [Multi-Vitamin Daily] 1 each PO DAILY 10/28/13 amLODIPine BESYLATE [Norvasc] 10 mg PO DAILY 10/28/13 Acetaminophen [Tylenol] 650 mg PO Q4H PRN 10/29/13 Cholecalciferol (Vitamin D3) [Vitamin D3] 2,000 unit PO DAILY #0 tablet 10/30/13 Sertraline HCl [Zoloft] 100 mg PO DAILY #0 tablet 10/30/13 ALPRAZolam [Xanax] 0.5 mg PO HS 02/01/18 Alprazolam [Xanax] 0.25 mg PO DAILY 02/01/18 Loperamide HCl [Imodium] 2 mg PO TID PRN 02/01/18 Metoprolol Succinate 25 mg PO DAILY 02/01/18 Morphine Sulfate [Ms Contin] 15 mg PO BID 02/01/18 Pramipexole Di-HCl [Pramipexole Dihydrochloride] 0.5 mg PO HS 02/01/18 Simethicone [Gas Relief] 80 mg PO TID PRN 02/01/18 guaiFENesin/DEXTROMETHORPHAN [Tussin Dm Syrup] 10 ml PO Q4H PRN 02/01/18 rOPINIRole HCL [Requip] 2 mg PO HS 02/01/18 Amlodipine Besylate 10 mg PO DAILY 02/02/18 Acetaminophen [Tylenol] 1,000 mg PO Q6H PRN tablet 02/05/18 Cefdinir 300 mg PO DAILY #5 cap 02/05/18 HYDROcodone/ACETAMINOPHEN [[place] 5-325] 1 ea PO Q3H PRN #112 tab 02/05/18 Lidocaine [Lidoderm 5%] 1 patch TOPICAL DAILY #50 patch 02/05/18
[2018-02-05 11:24] VITALS: BP 149/53
== END 2018-02-05 12:15 | DRG 493 ==
LOC: ER 07:55 → MS 10:26
PROVIDERS: ADMIT Family Medicine; ATTEND Internal Medicine
CPT/HCPCS: 36415; 71010; 71045; 73502; 73552; 73562; 73590; 73700; 76000; 80048; 80053; 81001; 84484; 85014; 85018; 85025; 85027; 86850; 86900; 87077; 87081; 87086; 87186; 93005; 97110; 97162; 97166; 99282; 99285; P9016